=== PATIENT | female | born 1945 | race Caucasian/White ===

== ENCOUNTER 2016-12-29 17:09 | Inpatient (IN) | payer MEDICARE ==
[~2016-12-29] VITALS: Ht 172.7 cm; Wt 102.6 kg
[2016-12-29] VITALS (7 sets, daily range): BP systolic 154–210; BP diastolic 54–90
[~2016-12-29 17:09] MED LIST: AMOXICILLIN500 MG PO; FLEXERIL10 MG PO; NAPROSYN500 MG PO; RITE AID IRON PO; SYNTHROID,LEVO25 MCG PO; TYLENOL325 M1 PO; VICODIN 5/500 505 MG PO; VICODIN 500 MG-1 TAB PO; ZITHROMAX Z PA250 MG PO; ZOFRAN ODT4 MG SL; ZOFRAN4 MG PO
[2016-12-29 17:33] LABS: BASO # 0.1 10*3/uL (0.0-0.1); BASO % 0.5 % (0.0-1.0); EOS # 0.1 10*3/uL (0.0-0.4); EOS % 1.1 % (1.0-4.0); HEMATOCRIT 40.4 % (37.0-47.0); HEMOGLOBIN 13.1 g/dl (12.0-16.0); LYMPH # 2.7 10*3/uL (1.3-4.4); LYMPH % 21.9 % (27.0-41.0); MEAN CELL VOLUME 90.4 fl (81.0-99.0); MEAN CORPUSCULAR HGB 29.3 pg (27.0-31.0); MEAN CORPUSCULAR HGB CONC 32.4 g/dl (33.0-37.0); MEAN PLATELET VOLUME 8.9 fl (9.6-12.3); MONO # 0.7 10*3/uL (0.1-1.0); MONO % 6.1 % (3.0-9.0); NEUT # 8.5 10*3/uL (2.3-7.9); NEUT % 70.1 % (47.0-73.0); PLATELET COUNT AUTOMATED 323 10*3/uL (130-400); RED BLOOD COUNT 4.47 10*6/uL (4.10-5.10); WHITE BLOOD COUNT 12.1 10*3/uL (4.8-10.8)
[2016-12-29 17:42] LABS: ACT PARTIAL THROMBO TIME 27.1 SECONDS (20.8-31.5); INTERNATIONAL NORM RATIO 0.9 (2.0-3.5)
[2016-12-29 17:49] LABS: ALBUMIN 3.6 gm/dl (3.1-4.5); ALKALINE PHOSPHATASE 115 U/L (45-117); BUN 12 mg/dl (7-24); CHLORIDE 103 mmol/L (98-107); CREATININE 0.87 mg/dL (0.55-1.02); POTASSIUM 3.6 mmol/L (3.5-5.1); SGOT/AST 20 IU/L (3-35); SGPT/ALT 27 U/L (12-78); SODIUM 138 mmol/L (136-145); TOTAL PROTEIN 8.5 gm/dL (6.4-8.2)
[2016-12-29 17:52] LABS: TROPONIN I < 0.015 ng/ml (<0.045)
--- NOTE | 2016-12-29 18:55 | NUR ---
REPEAT EKG ORDERED
--- NOTE | 2016-12-29 19:31 | NUR ---
A 71, admitted to , under the services of BRAYDON Nieto DO with a diagnosis of ANGINA. Chief complaint is CHEST PAIN. Patient arrived via stretcher from ER. Monitor applied. Initial assessment completed. Vital signs taken and recorded. BRAYDON NIETO DO notified of admission to the unit. Orders received. See assessment for past medical history, medications and allergies. Patient and/or family oriented to unit. [facility] Clothing/patient valuable form completed. YAMILETH ROBB
[2016-12-29] MEDS ORDERED: ASPIR LOW81 MG PO (19:37)
--- NOTE | 2016-12-29 19:55 | NUR ---
DR. ESTEVES NOTIFIED OF ELEVATED BLOOD PRESSURE. YAMILETH ROBB RN
--- NOTE | 2016-12-29 20:30 | NUR ---
DR SEGOVIA CALLED TO FLOOR AND WANTED TO HOLD LOPRESSOR. RN GAVE LOPRESSOR PER MD ORDER BEFORE DR SEGOVIA CALLED FLOOR. DR SEGOVIA ASKED TO RETAKE BP IN 30 MINS.
--- NOTE | 2016-12-29 21:00 | NUR ---
RN NOTIFIED DR SEGOVIA OF BP 154/54
[2016-12-30] VITALS: BP 140/50
[2016-12-30 04:00] VITALS: BP 138/62
[2016-12-30 06:15] LABS: BASO % 0.3 % (0.0-1.0); EOS # 0.1 10*3/uL (0.0-0.4); EOS % 0.5 % (1.0-4.0); HEMOGLOBIN 12.6 g/dl (12.0-16.0); LYMPH % 23.4 % (27.0-41.0); MEAN CELL VOLUME 90.9 fl (81.0-99.0); MEAN CORPUSCULAR HGB 29.4 pg (27.0-31.0); MEAN CORPUSCULAR HGB CONC 32.3 g/dl (33.0-37.0); MONO # 1.1 10*3/uL (0.1-1.0); MONO % 8.3 % (3.0-9.0); NEUT # 8.6 10*3/uL (2.3-7.9); NEUT % 67.2 % (47.0-73.0); PLATELET COUNT AUTOMATED 322 10*3/uL (130-400); RED BLOOD COUNT 4.29 10*6/uL (4.10-5.10); RED CELL DISTRI WIDTH 14.5 % (0-14.5); WHITE BLOOD COUNT 12.9 10*3/uL (4.8-10.8)
--- NOTE | 2016-12-30 06:42 | NUR ---
RN NOTIFIED DR PANDA PRECIPITATOR SERVICE FOR NEW CONSULTATION. AWAITING RETURN CALL.
--- NOTE | 2016-12-30 06:47 | NUR ---
DR CRAVEN RETURNED CALL FOR DR PANDA REGARDING NEW CONSULTATION. NO NEW ORDERS ARE GIVEN AT THIS TIME
[2016-12-30 07:03] LABS: BUN 13 mg/dl (7-24); CHLORIDE 102 mmol/L (98-107); CHOLESTEROL 197 mg/dL (<200); CREATININE 0.96 mg/dL (0.55-1.02); FREE T4 0.87 ng/dl (0.76-1.46); HDL CHOLESTEROL 36 mg/dl (40-60); LDL CHOLESTEROL 133 mg/dL (9-159); PHOSPHOROUS 3.2 mg/dL (2.5-4.9); POTASSIUM 3.9 mmol/L (3.5-5.1); SODIUM 137 mmol/L (136-145); TRIGLYCERIDES 139 mg/dl (<150); VLDL CHOLESTEROL 28 mg/dL (6-40)
[2016-12-30 07:45] LABS: VITAMIN D, 25-HYDROXY 16.7 ng/mL (30-100)
[2016-12-30 08:00] VITALS: BP 144/59
--- NOTE | 2016-12-30 08:00 | NUR ---
GETTING ECHO AT THIS TIME. NO DISTRESS NOTED. SEE SHIFT ASSESSMENT.
--- NOTE | 2016-12-30 09:00 | NUR ---
Molder Hand in to talk to patient. Patient states lives at home with . There are few steps in the home. Physician: lewis Pharmacy: [facility] Home health services: none Patient's level of ADLs: INDEPENDENT Patient has working utilities: all working DME: none Follow-up physician's appointment after d/c: will be made by hospitalist nurse director upon discharge Does patient want to access PORTAL?: no Discharge plan discussed with patient, patient lives at home is independent in adls and ambulation, patient states she will be returning home when able and denies any home needs. MAXIM CHATMAN
--- NOTE | 2016-12-30 09:38 | NUR ---
TO [facility]ARDIAC REHAB FOR STRESS TEST VIA WHEELCHAIR.
--- NOTE | 2016-12-30 09:50 | NUR ---
INFORMED CONSENT SIGNED FOR LEXISCAN WITH DR. PANDA. RESTING EKG NSR WITH A HR OF 79 AND BP 142/70. POX 96% VIA RA WITH FINE PB CRACKLES. COMPLETED ONE MINUTE OF A LEXISCAN PROTOCOL RECEIVING LEXISCAN 0.4 MG OVER 10 SECONDS. DEVELOPED SOB THAT WAS RELIEVED IN RECOVERY. HAD A PEAK HR OF 99 WITH A BP OF 158/60 LAST RECOVERY HR OF 94 WITH A BP OF 154/64. AWAITING NUCLEAR IMAGING IN STABLE CONDITION.
[2016-12-30 12:00] VITALS: BP 139/59
[2016-12-30 16:00] VITALS: BP 151/63
--- NOTE | 2016-12-30 16:03 | NUR ---
RESTING QUIETLY NO C/O NO DISTRESS NOTED. WAITING FOR STRESS TEST RESULTS AND HOPES TO GO HOME IF IT IS NEGATIVE.
[2016-12-30] MEDS ORDERED: VITAMIN D-32000 UNI1 PO (16:50)
[2016-12-30] MEDS ORDERED: LISINOPRIL5 MG PO (16:52)
--- NOTE | 2016-12-30 17:31 | NUR ---
DISCHARGED TO HOME IN CARE OF DAUGHTER. INSTRUCTIONS AND PERSCRIPTIONS REVIEWED WITH PT AND DAUGHTER. PT REFUSED FLU VACCINE.
== END 2016-12-30 17:31 | disposition home or self-care (01) | DRG 78 ==
LOC: ED 17:09 → 4E 18:06 → EDHOLD 18:06 → 4E 18:41
PROVIDERS: Emergency Medicine; Student in an Organized Health Care Education/Training Program; ADMIT Internal Medicine
PROC: 3E073KZ Introduction of Other Diagnostic Substance into Coronary Artery, Percutaneous Approach (ICD-10-PCS; principal; 2016-12-30)
PROC: 4A02XM4 Measurement of Cardiac Total Activity, External Approach (ICD-10-PCS; principal; 2016-12-30)
DX: I67.4 Hypertensive encephalopathy (principal); I16.1 Hypertensive emergency; E83.41 Hypermagnesemia; R07.89 Other chest pain; I10 Essential (primary) hypertension; K21.9 Gastro-esophageal reflux disease without esophagitis; E03.9 Hypothyroidism, unspecified; E66.9 Obesity, unspecified; D72.829 Elevated white blood cell count, unspecified; R73.03 Prediabetes; E78.1 Pure hyperglyceridemia; D50.9 Iron deficiency anemia, unspecified; I35.8 Other nonrheumatic aortic valve disorders; J02.9 Acute pharyngitis, unspecified; Z79.82 Long term (current) use of aspirin; Z98.51 Tubal ligation status; Z90.49 Acquired absence of other specified parts of digestive tract; Z90.710 Acquired absence of both cervix and uterus; Z86.73 Personal history of transient ischemic attack (TIA), and cerebral infarction without residual deficits; Z87.442 Personal history of urinary calculi; Z87.891 Personal history of nicotine dependence; Z82.49 Family history of ischemic heart disease and other diseases of the circulatory system; Z80.8 Family history of malignant neoplasm of other organs or systems; Z79.899 Other long term (current) drug therapy; Z68.34 Body mass index [BMI] 34.0-34.9, adult

== ENCOUNTER → 2017-08-04 | Outpatient (CLI) | payer MEDICARE ==
[~2017-08-04] MED LIST changes: +ASPIR LOW81 MG PO; +LISINOPRIL5 MG PO; +VITAMIN D-32000 UNI1 PO
== END | disposition home or self-care (01) ==
LOC: MAMMO 07:16
DX: Z12.31 Encounter for screening mammogram for malignant neoplasm of breast (principal)

== ENCOUNTER → 2017-11-04 | Day surgery (SDC) | payer MEDICARE ==
[~2017-11-04] VITALS: Ht 172.7 cm; Wt 98.4 kg
--- NOTE | ~2017-11-04 | O ---
[place], [place] OPERATIVE NOTE NAME: BIJU JONES UNIT #: [id number] ROOM: DOCTOR: YOBANY SCHAEFER MD BIRTHDATE: [birth year] DOS: 11/04/2017 HISTORY OF PRESENT ILLNESS: This is a 72-year-old patient who presented for colonic screening, undergoing investigation, lower abdominal pain as well. She has 3 bowel movements, which is loose. She has also complained of dark stools. She has been on iron therapy. PAST MEDICAL HISTORY: Hypertension and obesity. PAST SURGICAL HISTORY: Cholecystectomy and hysterectomy. FAMILY HISTORY: Noncontributory. ALLERGIES: No known medication. SOCIAL HISTORY: Nonsmoker, nonalcohol consumer. PROCEDURE: Today's procedure part of investigation is colonoscopy. PREMEDICATION: Propofol. SCOPE: Olympus folding colonoscope 10L video. REPORT: After putting the patient in left lateral position and application of lubricant to the scope, the scope was introduced; thereafter, under direct visualization, advanced through the length of colon with some difficulty. Difficulty being severe tortuosity of sigmoid colon and left colon in addition of severe diverticulosis and presence of liquid stool. With great difficulty, the scope was negotiated to about mid ascending colon. Beyond there pressure on the scope may rupture the sigmoid colon. Therefore, pressure was released and the scope was gradually withdrawn from mid ascending colon, transverse and descending colon was reinspected. Tortuosity of colon was reconfirmed severe diverticulosis revisited. Air was suctioned out. The patient was extubated, tolerated the procedure well. IMPRESSION: Severe tortuosity of colon, severe diverticulosis of the colon. Liquid stool retention. PLAN AND DISCUSSION: High fiber diet. We are going to try to see if we can get a completion be to visualize the base of cecum and clinical followup routinely with you in office in 2 weeks follow up with us in GI Clinic. Thank you very much again for your very kind referral. [place], [place] OPERATIVE NOTE NAME: BIJU JONES UNIT #: [id number] ROOM: DOCTOR: YOBANY SCHAEFER MD BIRTHDATE: [birth year] YOBANY SCHAEFER MD CM:OPRECORD:OPERATIVE NOTE [id number] YOBANY SCHAEFER MD 11/04/17 1115 interface
[2017-11-04 10:13] VITALS: BP 133/46
[2017-11-04 11:00] VITALS: BP 123/55
[2017-11-04 11:15] VITALS: BP 113/68
== END | disposition home or self-care (01) ==
LOC: SDC 11-03 09:30
DX: K57.30 Diverticulosis of large intestine without perforation or abscess without bleeding (principal); K63.89 Other specified diseases of intestine; I10 Essential (primary) hypertension; E07.9 Disorder of thyroid, unspecified; D64.9 Anemia, unspecified; E66.09 Other obesity due to excess calories; Z90.49 Acquired absence of other specified parts of digestive tract; Z90.710 Acquired absence of both cervix and uterus; Z98.890 Other specified postprocedural states; Z79.899 Other long term (current) drug therapy; Z86.73 Personal history of transient ischemic attack (TIA), and cerebral infarction without residual deficits; Z87.440 Personal history of urinary (tract) infections; Z87.442 Personal history of urinary calculi; Z68.33 Body mass index [BMI] 33.0-33.9, adult

== ENCOUNTER 2019-03-04 14:34 | Emergency (ER) | payer MEDICARE ==
[~2019-03-04] VITALS: Ht 172.7 cm; Wt 93.9 kg
[2019-03-04 15:36] LABS: BILIRUBIN NEGATIVE (NEGATIVE); BLOOD NEGATIVE (NEGATIVE); CLARITY CLEAR (CLEAR); COLOR YELLOW (YELLOW); GLUCOSE NEGATIVE (NEGATIVE); KETONE NEGATIVE (NEGATIVE); LEUKO ESTERASE NEGATIVE (NEGATIVE); NITRITE NEGATIVE (NEGATIVE); PH 5.5 (5.0-9.0); UROBILINOGEN 0.2 E.U./dl (0.2-1.0)
[2019-03-04 15:52] LABS: WBC 0-2 wbc/hpf (0-5)
[2019-03-04 16:34] LABS: BASO # 0.1 10*3/uL (0.0-0.1); BASO % 0.4 % (0.0-1.0); EOS # 0.1 10*3/uL (0.0-0.4); EOS % 0.8 % (1.0-4.0); HEMATOCRIT 36.6 % (37.0-47.0); HEMOGLOBIN 11.1 g/dl (12.0-16.0); LYMPH # 1.5 10*3/uL (1.3-4.4); LYMPH % 12.8 % (27.0-41.0); MEAN CELL VOLUME 87.6 fl (81.0-99.0); MEAN CORPUSCULAR HGB 26.6 pg (27.0-31.0); MEAN CORPUSCULAR HGB CONC 30.3 g/dl (33.0-37.0); MEAN PLATELET VOLUME 8.8 fl (9.6-12.3); MONO # 0.5 10*3/uL (0.1-1.0); MONO % 4.5 % (3.0-9.0); NEUT # 9.2 10*3/uL (2.3-7.9); NEUT % 81.2 % (47.0-73.0); PLATELET COUNT AUTOMATED 384 10*3/uL (130-400); RED BLOOD COUNT 4.18 10*6/uL (4.10-5.10); WHITE BLOOD COUNT 11.3 10*3/uL (4.8-10.8)
[2019-03-04 16:43] LABS: ACT PARTIAL THROMBO TIME 26.2 SECONDS (20.0-32.1); INTERNATIONAL NORM RATIO 0.9 (2.0-3.5)
[2019-03-04 16:51] LABS: ALBUMIN 3.6 gm/dl (3.1-4.5); ALKALINE PHOSPHATASE 105 U/L (45-117); BUN 23 mg/dl (7-24); CHLORIDE 107 mmol/L (98-107); CREATININE 0.98 mg/dL (0.55-1.02); LIPASE 128 U/L (73-393); POTASSIUM 3.7 mmol/L (3.5-5.1); SGOT/AST 13 IU/L (3-35); SGPT/ALT 19 U/L (12-78); SODIUM 140 mmol/L (136-145); TOTAL PROTEIN 7.9 gm/dL (6.4-8.2); TROPONIN I < 0.015 ng/ml (<0.045)
[2019-03-04] MEDS ORDERED: COLACE100 MG PO (18:10)
[2019-03-04] MEDS ORDERED: MIRALAX119 GM PO (18:10)
== END 2019-03-04 18:14 | disposition home or self-care (01) ==
LOC: ED 14:34
PROVIDERS: Nurse Practitioner Family
DX: K59.00 Constipation, unspecified (principal); R11.2 Nausea with vomiting, unspecified; R42 Dizziness and giddiness; E03.9 Hypothyroidism, unspecified; Z79.82 Long term (current) use of aspirin; Z87.891 Personal history of nicotine dependence